=== PATIENT | female | born 1975 | race Caucasian/White ===

== ENCOUNTER 2017-04-07 09:59 | Emergency (ER) | payer BC | END 2017-04-07 13:48 | disposition home or self-care (01) | LOC: D.ER 09:59 | DX: M54.2 Cervicalgia (principal); M54.5 Low back pain; V44.5XXA Car driver injured in collision with heavy transport vehicle or bus in traffic accident, initial encounter; Y93.89 Activity, other specified; Y92.410 Unspecified street and highway as the place of occurrence of the external cause ==